=== PATIENT | female | born 1985 | race Caucasian/White ===

== ENCOUNTER → 2020-03-19 | Outpatient (CLI) | payer OTHER | LOC: DIA.ED 10:58 | DX: O24.419 Gestational diabetes mellitus in pregnancy, unspecified control (principal) | CPT/HCPCS: G0108 ==

== ENCOUNTER → 2020-04-01 | Outpatient (CLI) | payer OTHER | LOC: DIA.ED 09:27 | DX: O24.419 Gestational diabetes mellitus in pregnancy, unspecified control (principal) | CPT/HCPCS: G0108 ==

== ENCOUNTER → 2020-05-06 | Outpatient (CLI) | payer OTHER ==
[~2020-05-06] MED LIST: CALCIUM CARBON650 M2; IBU600 MG PO; NATURAL IRON65 MG; PERCOCET 325 MG1 TA2 PO; PRENATAL
== END ==
LOC: DIA.ED 13:00
DX: O24.419 Gestational diabetes mellitus in pregnancy, unspecified control (principal)
CPT/HCPCS: G0108

== ENCOUNTER 2020-07-28 08:34 | Outpatient (CLI) | payer OTHER ==
[~2020-07-28] VITALS: Ht 154.9 cm; Wt 63.2 kg
--- NOTE | 2020-07-28 08:45 | NUR ---
0845-G4L2 36[address] Soto to unit with complain of contractions since 0545. Denies LOF or VB. Reports Good FM. Known low lying placenta. Dr. Soto previously on unit to patients arrival and made aware of patient in route. Orders to place patient of monitor and review contraction pattern. Patient assisted to gown and placed on EFM. VSS. Updated and reviewed assessment with patient. Patient rates contraction pain 7/10 and RN palpates contraction as patient feels one. Palpates mild/soft. 0916-Dr. Soto updated see MD notification. 0920-one Liter LR infusing per MD order. 0930-SVE by ANIKA Rahman C/Th/H mid position. BOWI. 1005-Dr. Soto updated. Discharge order given.
[2020-07-28] MEDS ORDERED: PRENATAL (09:04)
[2020-07-28] MEDS ORDERED: CALCIUM CARBON650 M2 (09:05)
[2020-07-28] MEDS ORDERED: NATURAL IRON65 MG (09:09)
[2020-07-28 09:15] VITALS: BP 107/54; PULSE 86; TEMP 98
[2020-07-28 09:45] VITALS: BP 107/54; PULSE 86
[2020-07-28 10:11] VITALS: BP 101/63; PULSE 71
--- NOTE | 2020-07-28 10:11 | NUR ---
1011-Off EFM. Up to bathroom. 1020-Patient discharge instructions reviewed. Denies questions. 1030-Ambulatory off unit
== END 2020-07-28 10:30 | disposition home or self-care (01) ==
LOC: LDRO 08:34
DX: O62.9 Abnormality of forces of labor, unspecified (principal); Z3A.35 35 weeks gestation of pregnancy
CPT/HCPCS: J7120

== ENCOUNTER 2020-08-01 19:08 | Outpatient (CLI) | payer OTHER ==
[~2020-08-01] VITALS: Ht 157.5 cm; Wt 63.6 kg
[~2020-08-01 19:08] MED LIST changes: -IBU600 MG PO; -PERCOCET 325 MG1 TA2 PO
--- NOTE | 2020-08-01 19:15 | NUR ---
Pt to unit via wheelchair with spouse with complaints of contractions. Pt oriented to room and changed into gown.
--- NOTE | 2020-08-01 20:24 | NUR ---
DR. FAGAN IN ROOM TO EVALUATE PT AND PERFORM SVE. PT IS 1/THICK/HIGH PER DR. FAGAN. START IV, GIVE 500ML BOLUS OF LR AND MONITOR FOR ADDITIONAL HOUR.
[2020-08-01 21:00] VITALS: BP 112/64; PULSE 83; TEMP 98.8
--- NOTE | 2020-08-01 21:35 | NUR ---
DR. FAGAN IN ROOM TO PERFORM RECHECK OF SVE. PT IS UNCHANGED FROM PREVIOUS CHECK PER DR. FAGAN. ORDERS GIVEN FOR 0.25MG SQ TERBUTALINE NOW. COMPLETE INFUSION OF REMAINING 500ML OF LR, CONTINUE TO MONITOR. IF YOU HAVE REASSURING FHTS AND CONTRACTIONS ARE IRREGULAR PT MAY DC HOME.
[2020-08-01 22:30] VITALS: PULSE 91
[2020-08-01 23:00] VITALS: PULSE 91
--- NOTE | 2020-08-01 23:00 | NUR ---
Monitoring dc'd at this time, may DC home per Dr. Mccurdy. IV DC'd. Pt to change into street clothes while discharge paperwork prepared.
--- NOTE | 2020-08-01 23:15 | NUR ---
Discharge instructions reviewed with pt and spouse, understanding verbalized. Pt and spouse off the unit ambulatory.
== END 2020-08-01 23:15 | disposition home or self-care (01) ==
LOC: LDRO 19:08 → LDR 19:15 → LDRO 23:15 → LDR 08-03 23:15
DX: O62.9 Abnormality of forces of labor, unspecified (principal); Z3A.35 35 weeks gestation of pregnancy
CPT/HCPCS: OP; J3105; J7120

== ENCOUNTER 2020-08-13 00:40 | Outpatient (CLI) | payer OTHER ==
[~2020-08-13] VITALS: Ht 157.5 cm; Wt 64.1 kg
[2020-08-13 01:10] VITALS: BP 124/74; PULSE 81; TEMP 97.9
--- NOTE | 2020-08-13 02:05 | NUR ---
Repeat SVE with no changes noted, reviewed with pt a nd spouse. Pt states " I thought I would be more dilated" then laughs. quietly supportive.
[2020-08-13 02:10] VITALS: BP 111/75; PULSE 93
--- NOTE | 2020-08-13 02:35 | NUR ---
Discharge instructions reviewed with pt and spouse, questions invited and answered. Ambulatory off unit.
== END 2020-08-13 02:35 | disposition home or self-care (01) ==
LOC: LDRO 00:40 → LDR 01:00 → LDRO 02:35
DX: O62.9 Abnormality of forces of labor, unspecified (principal); O99.891 Other specified diseases and conditions complicating pregnancy; M54.9 Dorsalgia, unspecified; Z3A.37 37 weeks gestation of pregnancy
CPT/HCPCS: OP

== ENCOUNTER 2020-08-25 02:37 | Inpatient (IN) | payer OTHER ==
[~2020-08-25] VITALS: Ht 157.5 cm; Wt 65.0 kg
[2020-08-25] VITALS (21 sets, daily range): BP systolic 90–123; BP diastolic 46–82; PULSE 58–93; TEMP 97.8–98.6
--- NOTE | 2020-08-25 02:45 | NUR ---
G4L2. Pt to LDR 3 with spouse. Clean gown on. EFM and TOCO explained and applied. Pt reports waking up to some pain in her abdomen and then a gush a fluids which she thought was pee. When pt looked at fluid she realized it was blood so she tried to use the restroom. Pt then stated "the whole toliet was full of blood when I stood up." Since then pt states she has had to change her pad once. This RN observed current pad which was 75% saturated with bright mindy red blood noted. No clots noted at this time. Pt reports contractions for the last couple of day but states they are getting more intense now. Pt unsure if her water was broken due to the amount of blood. Reports good movement. VS taken. 0300: called and updated on pts status. See physican notification. Pt updated on plan of care. 0320: IV started and labs obtained via IV site. Plan of care explained to pt. Denies questions at this time. 0339: called and requested at hospital for further evaluation of bleeding. 0357: at bedside for further evaluation. SVE per provider. Decision for a made at this time. Pt verbalized her understanding. Denies any questions at this time. 0401: Pt off the montiors and wheeled back to OR for .
[2020-08-25 03:46] LABS: BASO # 0.1 (0.0-0.2); EOS # 0.3 (0.0-0.7); EOS % 3.4 % (0-4.0); GRAN # 6.2 (1.4-6.5); GRAN % 67.7 % (42.2-75.2); HEMOGLOBIN 10.8 g/dl (12.5-16.0); LYMPH # 2.1 (1.2-3.4); LYMPH % 22.4 % (20.0-51.0); MEAN CELL VOLUME 81 fl (80.0-100.0); MEAN CORPUSCULAR HEMOGLOBIN 25 pg (27.0-31.0); MEAN CORPUSCULAR HGB CONC 31 g/dl (33.0-37.0); MEAN PLATELET VOLUME 11.8 fl (7.4-10.4); MONO # 0.4 (0.1-0.6); MONO % 4.8 % (1.7-9.3); PLATELET COUNT 277 K/mm3 (130-400); RED BLOOD COUNT 4.25 M/mm3 (4.10-5.30); REDCELL DISTRIBUTION WIDTH-CV 18.6 % (11.5-14.5)
[2020-08-25 03:47] LABS: HEMATOCRIT 34.6 % (37.0-47.0)
[2020-08-26 03:35] VITALS: BP 109/62; PULSE 72; TEMP 98.2
[2020-08-26 08:02] VITALS: BP 108/76; PULSE 76; TEMP 98.2
[2020-08-26] MEDS ORDERED: IBU600 MG PO (09:12)
[2020-08-26] MEDS ORDERED: PERCOCET 325 MG1 TA2 PO (09:12)
[2020-08-26 17:10] VITALS: BP 112/68; PULSE 78; TEMP 98.1
[2020-08-26 20:50] VITALS: BP 109/51; PULSE 74; TEMP 97.8
[2020-08-27 07:23] VITALS: BP 114/68; PULSE 76; TEMP 98.1
[2020-08-27 15:59] VITALS: BP 114/68; PULSE 82; TEMP 97.8
[2020-08-27 19:50] VITALS: BP 104/47; PULSE 89; TEMP 98.9
[2020-08-28 08:15] VITALS: BP 112/55; PULSE 68; TEMP 98.1
== END 2020-08-28 14:10 | disposition home or self-care (01) | DRG 786 ==
LOC: LDRO 02:37 → LDR 02:50 → LDRO 03:10 → OB 03:11 → LDR 03:11 → OB 05:39
PROVIDERS: ADMIT Obstetrics & Gynecology
PROC: 10D00Z1 Extraction of Products of Conception, Low, Open Approach (ICD-10-PCS; principal; 2020-08-25)
DX: O44.53 Low lying placenta with hemorrhage, third trimester (principal); O24.12 Pre-existing type 2 diabetes mellitus, in childbirth; Z3A.39 39 weeks gestation of pregnancy; Z37.0 Single live birth; E11.9 Type 2 diabetes mellitus without complications
CPT/HCPCS: J0690; J1100; J1885; J2370; J2405; J2590; J7120